=== PATIENT | female | born 1990 | race Caucasian/White ===

== ENCOUNTER 2021-10-07 07:53 | Outpatient (CLI) | payer OTHER ==
[~2021-10-07 07:53] MED LIST: CLINDAMYCIN HC150 MG PO; LOPRESSOR25 MG PO; PRENATAL TABLE1 EAC1 PO; PROPRANOLOL HCL10 MG PO; TRAMADOL HCL-AP1 TAB PO
== END 2021-10-07 09:00 | disposition home or self-care (01) ==
LOC: PRENATAL 07:53
PROVIDERS: ATTEND Obstetrics & Gynecology Maternal & Fetal Medicine
DX: O35.0XX0 Maternal care for (suspected) central nervous system malformation in fetus, not applicable or unspecified (principal); O35.3XX0 Maternal care for (suspected) damage to fetus from viral disease in mother, not applicable or unspecified; Z3A.20 20 weeks gestation of pregnancy

== ENCOUNTER 2022-01-16 11:22 | Outpatient (CLI) | payer OTHER | END 2022-01-16 13:15 | disposition home or self-care (01) | LOC: PRENATAL 11:22 | PROVIDERS: ATTEND Obstetrics & Gynecology Maternal & Fetal Medicine | DX: O26.849 Uterine size-date discrepancy, unspecified trimester (principal); O36.8199 Decreased fetal movements, unspecified trimester, other fetus; O35.0XX0 Maternal care for (suspected) central nervous system malformation in fetus, not applicable or unspecified; Z3A.35 35 weeks gestation of pregnancy ==

== ENCOUNTER 2022-02-04 06:03 | Inpatient (IN) | payer OTHER ==
[~2022-02-04] VITALS: Ht 157.5 cm; Wt 64.0 kg
== END 2022-02-06 13:11 | disposition home or self-care (01) | DRG 807 ==
LOC: OB/GYN 06:03 → LDR 06:03 → OB/GYN 09:27
PROVIDERS: ADMIT Specialist; ATTEND Specialist
PROC: 10E0XZZ Delivery of Products of Conception, External Approach (ICD-10-PCS; principal; 2022-02-04)
PROC: 0W8NXZZ Division of Female Perineum, External Approach (ICD-10-PCS; 2022-02-04)
PROC: 4A1HXCZ Monitoring of Products of Conception, Cardiac Rate, External Approach (ICD-10-PCS; 2022-02-04)
DX: O80 Encounter for full-term uncomplicated delivery (principal); Z37.0 Single live birth; Z3A.37 37 weeks gestation of pregnancy; Z20.822 Contact with and (suspected) exposure to COVID-19